=== PATIENT | male | born 2000 | race Caucasian/White ===

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

== ENCOUNTER 2022-05-04 17:36 | Emergency (ER) | payer BC ==
[~2022-05-04] VITALS: Ht 167.6 cm; Wt 64.0 kg
[2022-05-04] MEDS ORDERED: NAPR-681 MT (21:11)
[2022-05-04] MEDS ORDERED: IBUPROFEN 600MG TABLET PO ONE (21:15)
[2022-05-04] MEDS ORDERED: DEXAMETHASONE 10 MG/ML VIAL IM ONE (21:15)
[2022-05-04 21:31] VITALS: BP 124/78
== END 2022-05-04 21:33 | disposition home or self-care (01) ==
LOC: ER 17:36
DX: B34.9 Viral infection, unspecified (principal)
CPT/HCPCS: 96372; 99283; J1100